=== PATIENT | male | born 1960 | race African-American/Black ===

== ENCOUNTER 2017-10-25 06:41 | Emergency (ER) | payer OTHER ==
[~2017-10-25] VITALS: Ht 188 cm; Wt 158.8 kg
[~2017-10-25 06:41] MED LIST: AMOXICILLIN500 MG ORAL; ASPIR-LOW81 MG PO; BENAZEPRIL HCL20 MG PO; GLUCOPHAGE500 MG PO; HYDROCHLOROTHIA25 MG PO; IBUPROFEN600 MG PO; LEVAQUIN750 MG ORAL; LOTENSIN20 MG PO; MAGIC MOUTH WAS60 ML *; METFORMIN HCL1000 M1 ORAL; METRONIDAZOLE500 MG ORAL; NORCO 5-325 TA1 EACH PO; POLYTRIM OP SOL10 ML BOTH EYES; VIBRAMYCIN100 MG PO; ZESTORETIC 20/251 EA ORAL
[2017-10-25] MEDS ORDERED: Lidocaine 1% 10mg/ml/Epi 0.005mg/ml 30ml vial INJ ONE (07:15)
[2017-10-25] MEDS ORDERED: Bacitracin Oint UD TOPIC ONE (07:15)
--- NOTE | 2017-10-25 07:15 | Emergency Room Report ---
History of Present Illness General Chief Complaint: Skin Rash/Abscess Source: Patient Present Illness HPI Patient presents to the gross the right inner thigh. Mr. Connell for 2-3 months. No most cut out himself he says because of pain he states that his tetanus is up-to-date then had 5 shots 6 months ago. He rates the pain 10/10 at this time, burning not radiating. There is no fevers, chills or redness of the skin. Allergies: Coded Allergies: No Known Allergies (Unverified , 06/03/12) Patient History Past Medical History: see triage record Past Surgical History: polina Social History: Denies: smoking Social History Narrative from home Reviewed Nursing Documentation: PMH: Agreed; PSxH: Agreed Nursing Documentation-PMH Hx Hypertension: Yes Hx Diabetes: Yes Hx Gastrointestinal Problems: No - cholecystectomy Review of Systems Constitutional: Reports: see HPI Respiratory: Denies: shortness of breath Cardiovascular: Denies: chest pain Gastrointestinal: Denies: abdominal pain Skin: Reports: see HPI Neurological: Denies: paresthesia Physical Exam Vital Signs Date Time Temp Pulse Resp B/P (MAP) Pulse Ox O2 Delivery O2 Flow Rate FiO2 10/25/17 06:59 98.3 84 15 135/80 96 Room Air 98.2 Sp02 EP Interpretation: reviewed, normal General Appearance: well appearing, no apparent distress Head: normocephalic, atraumatic Eyes: bilateral eye normal inspection, bilateral eye PERRL ENT: hearing grossly normal, normal voice Neck: full range of motion, supple Respiratory: no respiratory distress, speaking full sentences Gastrointestinal: overweight Musculoskeletal: no calf tenderness Neurologic: alert, normal gait Psychiatric: mood/affect normal Skin: no rash, other - skin tag R inner thigh Procedures Laceration/Wound Repair Laceration/Wound Repair : Consent: Verbal Wound Location: other - Right inner thigh Wound Explored: Skin tag removed and sent to pathology lab for analysis Anesthesia: Lidocaine w/ Epi Wound Debrided: Skin tag removed - minimal bleeding - < 1 ml - controlled Sterile Dressing Applied?: Yes - bacitracin and bandaid Splint Applied?: No Patient Tolerated: Well Complications: None Medical Decision Making Diagnostic Impression: Primary Impression: Skin tag ER Course Patient presents with a painful skin tag in his right inner thigh. Differential could include forms of skin cancer however this is unlikely. Plan is for excision. See procedure note. Tolerated well. Tissue sent to pathology. Patient stable for outpatient observation and treatment. Last Vital Signs Date Time Temp Pulse Resp B/P (MAP) Pulse Ox O2 Delivery O2 Flow Rate FiO2 10/25/17 06:59 98.3 84 15 135/80 96 Room Air 98.2 Scripts Bacitracin (Bacitracin) 28.4 Gm Oint...g. 1 APPLIC TOPIC BID, #20 GM Prov: Aaron Hill M.D. 10/25/17 Aaron Hill M.D. Oct 25, 2017 07:15
[2017-10-25 07:17] VITALS: BP 133/79
[2017-10-25] MEDS ORDERED: BACITRACIN15 GM TOPIC (07:41)
[2017-10-25 07:45] VITALS: BP 133/79
== END 2017-10-25 07:45 | disposition home or self-care (01) ==
LOC: EMR 07:28
DX: L91.8 Other hypertrophic disorders of the skin (principal); E11.9 Type 2 diabetes mellitus without complications; I10 Essential (primary) hypertension; Z90.49 Acquired absence of other specified parts of digestive tract
CPT/HCPCS: 11200; 99284; Z7502

== ENCOUNTER 2019-05-01 14:53 | Emergency (ER) | payer OTHER ==
[~2019-05-01] VITALS: Ht 188 cm; Wt 136.1 kg
[~2019-05-01 14:53] MED LIST changes: +BACITRACIN15 GM TOPIC
[2019-05-01] MEDS ORDERED: LOSARTAN-HCTZ1 EAC1 ORAL ×2 (15:06→15:40)
[2019-05-01 15:10] VITALS: BP 124/69
--- NOTE | 2019-05-01 15:10 | NUR ---
ER Nurse Note: Patient walked in to ER from home due to medication refill. he could not reach his pcp. Patient alert and oriented x4 and amulatory. Skin clean and intact. Calm and cooperative. No acute distress noted at this time.
--- NOTE | 2019-05-01 15:40 | Emergency Room Report ---
History of Present Illness General Chief Complaint: Medication Refill Source: Patient Present Illness HPI 59-year-old male with history of hypertension currently controlled with blood pressure medication here requesting refill on his blood pressure medication. Patient reports the last time he took his blood pressure medication was yesterday. Denies any chest pain, headache, dizziness, blurry vision, nausea vomiting. Patient reports that his primary care physician is out of town and would follow-up with her in 1 month. Patient in no distress and has normal blood pressure. Denies all other associated symptoms. Patient is carrying a bottle of hydrochlorothiazide and losartan. Allergies: Coded Allergies: No Known Allergies (Unverified , 06/03/12) Patient History Past Medical History: see triage record Past Surgical History: none Pertinent Family History: none Immunizations: UTD Reviewed Nursing Documentation: PMH: Agreed; PSxH: Agreed Nursing Documentation-PMH Past Medical History: No History, Except For Hx Hypertension: Yes Hx Diabetes: Yes Hx Gastrointestinal Problems: No - cholecystectomy Review of Systems All Other Systems: negative except mentioned in HPI Physical Exam Vital Signs Date Time Temp Pulse Resp B/P (MAP) Pulse Ox O2 Delivery O2 Flow Rate FiO2 05/01/19 15:02 97.9 64 16 119/66 (83) 96 Room Air Sp02 EP Interpretation: reviewed, normal General Appearance: no apparent distress, alert, GCS 15, non-toxic Head: normocephalic, atraumatic Eyes: bilateral eye normal inspection, bilateral eye PERRL ENT: hearing grossly normal, normal pharynx, no angioedema, normal voice Neck: full range of motion, supple/symm/no masses Respiratory: chest non-tender, lungs clear, normal breath sounds, no wheezing, speaking full sentences Cardiovascular #1: regular rate, rhythm, no edema, no murmur, normal capillary refill Gastrointestinal: normal bowel sounds, non tender, soft, non-distended, no guarding, no rebound Rectal: deferred Genitourinary: normal inspection, no CVA tenderness Musculoskeletal: back normal, gait/station normal, normal range of motion, non- tender, no calf tenderness Neurologic: alert, oriented x3, responsive, motor strength/tone normal, sensory intact, speech normal Psychiatric: judgement/insight normal, memory normal, mood/affect normal, no suicidal/homicidal ideation Skin: no rash Lymphatic: no adenopathy Medical Decision Making PA Attestation All my diagnosis and treatment plans were reviewed ad discussed with my supervising physician Dr. Villegas Diagnostic Impression: Primary Impression: Encounter for medication refill Additional Impression: HTN (hypertension) ER Course 59-year-old male with history of hypertension currently controlled with blood pressure medication here requesting refill on his blood pressure medication. Patient reports the last time he took his blood pressure medication was yesterday. Denies any chest pain, headache, dizziness, blurry vision, nausea vomiting. Patient reports that his primary care physician is out of town and would follow-up with her in 1 month. Patient in no distress and has normal blood pressure. Denies all other associated symptoms. Patient is carrying a bottle of hydrochlorothiazide and losartan. Ddx considered but are not limited to: Hypertension, presents emergency, urgency. Vital signs: are WNL, pt. is afebrile H&PE are most consistent with: Medication refill for controlled hypertension ORDERS: Losartan hydrochlorothiazide ED INTERVENTIONS: None required at this time. DISCHARGE: At this time pt. is stable for d/c to home. Will provide printed patient care instructions, and any necessary prescriptions. Care plan and follow up instructions have been discussed with the patient prior to discharge. Patient to follow-up with primary care provider for further refills. Last Vital Signs Date Time Temp Pulse Resp B/P (MAP) Pulse Ox O2 Delivery O2 Flow Rate FiO2 05/01/19 15:02 97.9 64 16 119/66 (83) 96 Room Air Disposition: HOME, SELF-CARE Condition: Stable Scripts Losartan/Hydrochlorothiazide (LOSARTAN-HCTZ 100-25 MG TAB) 1 Each Tablet 1 TAB ORAL DAILY for 30 Days, #30 TAB Prov: Luis Whitman 05/01/19 Patient Instructions: Hypertension, [id number], Medicine Refill at the Emergency Department Luis Whitman May 01, 2019 15:39
--- NOTE | 2019-05-01 15:50 | NUR ---
ED Nurse Note: Pt cleared by health care Provider for discharge. DC instructions/prescription was given and explained to pt and verbalized understanding of teachings. All medical deviecs such as ID band removed. Pt is AAO x4, ambulatory and left with all personal belongings.
[2019-05-01 15:56] VITALS: BP 124/77
== END 2019-05-01 16:00 | disposition home or self-care (01) ==
LOC: EMR 15:53
DX: I10 Essential (primary) hypertension (principal); Z76.0 Encounter for issue of repeat prescription; E11.9 Type 2 diabetes mellitus without complications; Z90.49 Acquired absence of other specified parts of digestive tract
CPT/HCPCS: 99282

== ENCOUNTER 2019-05-12 04:04 | Emergency (ER) | payer OTHER ==
[~2019-05-12] VITALS: Ht 188 cm; Wt 154.2 kg
[~2019-05-12 04:04] MED LIST changes: +LOSARTAN-HCTZ1 EAC1 ORAL
--- NOTE | 2019-05-12 04:18 | NUR ---
ED Nurse Note: pt walked in to ED C/O dizziness and headache for the last 3 days. pt is alert x4. pt verbalizes he has Hx of DM and HTN
[2019-05-12 04:19] VITALS: BP 130/81
[2019-05-12] MEDS ORDERED: METFORMIN HCL1000 M1 ORAL (04:29)
[2019-05-12] MEDS ORDERED: LOSARTAN-HCTZ1 EAC1 ORAL (04:29)
--- NOTE | 2019-05-12 04:33 | Emergency Room Report ---
History of Present Illness General Chief Complaint: Dizziness Source: Patient Present Illness HPI 59-year-old male history of hypertension, hyperlipidemia, diabetes presents with vague complaints of feeling a little tired, lightheaded, patient states that he just wants his glucose check, denies any chest pain shortness of breath , he denies the room spinning, no nausea no vomiting, no dyspnea on exertion, patient just wants refills on his meds, wants counseling on diabetes, patient presents for evaluation. Allergies: Coded Allergies: No Known Allergies (Unverified , 06/03/12) Patient History Past Medical History: see triage record Reviewed Nursing Documentation: PMH: Agreed; PSxH: Agreed Nursing Documentation-PMH Past Medical History: No History, Except For Hx Hypertension: Yes Hx Diabetes: Yes Hx Gastrointestinal Problems: No - cholecystectomy Review of Systems All Other Systems: negative except mentioned in HPI Physical Exam Vital Signs Date Time Temp Pulse Resp B/P (MAP) Pulse Ox O2 Delivery O2 Flow Rate FiO2 05/12/19 04:11 98.4 68 14 128/70 (89) 95 Room Air 05/12/19 04:19 98 Sp02 EP Interpretation: reviewed, normal General Appearance: well appearing, no apparent distress, alert Head: normocephalic, atraumatic Eyes: bilateral eye PERRL, bilateral eye EOMI ENT: uvula midline, moist mucus membranes Neck: supple, thyroid normal, supple/symm/no masses Respiratory: lungs clear, no respiratory distress, no retraction, no accessory muscle use Cardiovascular #1: normal peripheral pulses, regular rate, rhythm, no edema, no gallop, no murmur Gastrointestinal: non tender, soft, no guarding, no rebound Musculoskeletal: normal inspection Neurologic: alert, oriented x3 Psychiatric: mood/affect normal Skin: no rash, warm/dry Medical Decision Making Diagnostic Impression: Primary Impression: Diabetes mellitus Qualified Codes: E11.9 - Type 2 diabetes mellitus without complications ER Course 59-year-old male presents for a glucose check. Glucose check 139, extensive counseling for diabetes was given, diet modification, refills on meds were given, counseled patient to follow-up with a primary care doctor in order to establish care check A1c disposition home with return precautions Last Vital Signs Date Time Temp Pulse Resp B/P (MAP) Pulse Ox O2 Delivery O2 Flow Rate FiO2 05/12/19 04:19 76 15 Room Air 98 05/12/19 04:19 98.4 130/81 95 Disposition: HOME, SELF-CARE Condition: Stable Referrals: [facility] Magda Rodriguez. [facility] Patient Instructions: Blood Glucose Monitoring, Adult, Diabetes Mellitus and Food, Diabetes and Exercise, Hemoglobin A1c Test Additional Instructions: The patient was provided with discharge instructions, notified to follow-up with a primary care doctor and or specialist in the next 24-48 hours, and to return to the ED if they have worsening of their symptoms. Please note that this report is being documented using Bev[employer] technology. This can lead to erroneous entry secondary to incorrect interpretation by the dictating instrument. Mata Cantu MD May 12, 2019 04:33
--- NOTE | 2019-05-12 04:35 | NUR ---
ER DISCHARGE NOTE: Patient is cleared to be discharged per ERMD, pt is aox4, on room air, with stable vital signs. pt was given dc instructions, pt was able to verbalize understanding, pt id band removed without complications. pt is able to ambulate with steady gait. pt took all belongings.
== END 2019-05-12 04:35 | disposition home or self-care (01) ==
LOC: EMR 04:10
DX: E11.9 Type 2 diabetes mellitus without complications (principal); R42 Dizziness and giddiness; I10 Essential (primary) hypertension; E78.5 Hyperlipidemia, unspecified; Z90.49 Acquired absence of other specified parts of digestive tract
CPT/HCPCS: 82962; Z7502; 99282

== ENCOUNTER 2019-05-18 03:23 | Emergency (ER) | payer OTHER ==
[~2019-05-18] VITALS: Ht 188 cm; Wt 158.8 kg
--- NOTE | 2019-05-18 03:30 | NUR ---
ED Nurse Note: Walk-in patient presents with complaints of upset stomach x 1 week. Patient is concerned about salmonella poisoning. ERMD at bedside.
[2019-05-18 03:34] VITALS: BP 161/96
[2019-05-18] MEDS ORDERED: ZITHROMAX250 MG ORAL (03:36)
[2019-05-18] MEDS ORDERED: LOMOTIL TABLET1 EACH ORAL (03:36)
--- NOTE | 2019-05-18 03:37 | Emergency Room Report ---
History of Present Illness General Chief Complaint: Abdominal Pain Source: Patient Present Illness HPI This is a 59-year-old male who is morbidly obese. He presents with chief complaint abdominal cramping pain with nausea vomiting diarrhea. Is been ongoing for about 8 days. Mostly symptoms of diarrhea. He said everything eat or drink is goes right through. Has bloating and a lot of gas. No fever chills. No trauma. He thought it may be food poisoning's because he ate something 8 days ago no recent antibiotics. No recent travel outside the country. Pain is crampy in nature. 6 out of 10. Worse with eating. Better with rest. Allergies: Coded Allergies: No Known Allergies (Unverified , 06/03/12) Patient History Past Medical History: see triage record, old chart reviewed Past Surgical History: polina Pertinent Family History: none Social History: Denies: smoking Immunizations: other Reviewed Nursing Documentation: PMH: Agreed; PSxH: Agreed Nursing Documentation-PMH Past Medical History: No History, Except For Hx Hypertension: Yes Hx Diabetes: Yes Hx Gastrointestinal Problems: No - cholecystectomy Review of Systems Eye: Denies: eye pain, blurred vision ENT: Denies: ear pain, nose congestion, throat swelling Respiratory: Denies: cough, shortness of breath Cardiovascular: Denies: chest pain, palpitations Gastrointestinal: Reports: abdominal pain, diarrhea, nausea, vomiting Musculoskeletal: Denies: back pain, joint pain Skin: Denies: rash Neurological: Denies: headache, numbness Endocrine: Denies: increased thirst, increased urine Hematologic/Lymphatic: Denies: easy bruising All Other Systems: negative except mentioned in HPI Physical Exam Vital Signs Date Time Temp Pulse Resp B/P (MAP) Pulse Ox O2 Delivery O2 Flow Rate FiO2 05/18/19 03:28 98.8 66 18 161/96 (117) 98 Room Air Vitals with high blood pressure Sp02 EP Interpretation: reviewed, normal General Appearance: well appearing, no apparent distress, alert Head: normocephalic, atraumatic Eyes: bilateral eye PERRL, bilateral eye EOMI ENT: hearing grossly normal, normal pharynx Neck: full range of motion, supple, no meningismus Respiratory: chest non-tender, lungs clear, normal breath sounds Cardiovascular #1: regular rate, rhythm, no murmur Gastrointestinal: non tender, no mass, no organomegaly, no bruit, non-distended , abnormal bowel sounds - hyper active Musculoskeletal: back normal, gait/station normal, normal range of motion Psychiatric: mood/affect normal Medical Decision Making Diagnostic Impression: Primary Impression: Diarrhea Qualified Codes: R19.7 - Diarrhea, unspecified ER Course This been going on for over a week. We will put him on antibiotics. He looks well-hydrated. No evidence of an acute abdomen. No evidence of any obstruction. Will discharge home. Last Vital Signs Date Time Temp Pulse Resp B/P (MAP) Pulse Ox O2 Delivery O2 Flow Rate FiO2 05/18/19 03:28 98.8 66 18 161/96 (117) 98 Room Air Status: unchanged Disposition: HOME, SELF-CARE Condition: Stable Scripts Azithromycin* (ZITHROMAX*) 250 Mg Tablet 250 MG ORAL DAILY, #6 TAB 0 Refills Take two tables once daily for 1 day, then one tablet once daily for 4 days. Prov: Beto Prasad MD 05/18/19 Diphenoxylate Hcl/Atropine (LOMOTIL TABLET) 1 Each Tablet 1 TAB ORAL TID, #15 TAB 0 Refills Prov: Beto Prasad MD 05/18/19 Referrals: [facility]ERR[facility] (PCP) Additional Instructions: Follow-up with your doctor in 3 to 5 days for recheck. Return if worse. Beto Prasad MD May 18, 2019 03:37
--- NOTE | 2019-05-18 03:43 | NUR ---
ED Nurse Note: Patient cleared for discharge by ERMd, verbalized understanding of discharge instructions, ID band removed. Patient is A&Ox4, able to ambulate with steady gait. Patient departed with all belongings.
[2019-05-18 03:44] VITALS: BP 161/96
== END 2019-05-18 03:45 | disposition home or self-care (01) ==
LOC: EMR 03:32
DX: R19.7 Diarrhea, unspecified (principal); I10 Essential (primary) hypertension; E11.9 Type 2 diabetes mellitus without complications
CPT/HCPCS: 99282

== ENCOUNTER 2019-06-30 00:27 | Emergency (ER) | payer OTHER ==
[~2019-06-30] VITALS: Ht 188 cm; Wt 156.5 kg
[~2019-06-30 00:27] MED LIST changes: +LOMOTIL TABLET1 EACH ORAL; +ZITHROMAX250 MG ORAL
[2019-06-30 01:30] VITALS: BP 150/84
--- NOTE | 2019-06-30 01:30 | NUR ---
ED Nurse Note: ppt walked in to ED for C/O pain while urinating since 2 weeks ago. no penile discharge present. pt is alert x4.
--- NOTE | 2019-06-30 01:39 | NUR ---
ED Nurse Note: urine sample sent down to lab
[2019-06-30 01:42] LABS: APPEARANCE,URINE CLEAR; BILIRUBIN, URINE NEGATIVE (NEGATIVE); COLOR,URINE PALE YELLOW; GLUCOSE, URINE (UA) NEGATIVE (NEGATIVE); KETONES,URINE NEGATIVE (NEGATIVE); LEUKOCYTE ESTERASE ,URINE NEGATIVE (NEGATIVE); NITRITE,URINE NEGATIVE (NEGATIVE); PH,URINE 6 (4.5-8.0); PROTEIN,URINE 1+ (NEGATIVE); UROBILINOGEN,URINE NORMAL MG/DL (0.0-1.0)
--- NOTE | 2019-06-30 01:44 | Emergency Room Report ---
History of Present Illness General Chief Complaint: Male Urogenital Problems Source: Patient Present Illness HPI 59-year-old male who presents with burning on urination. Symptoms started 2 weeks ago. He is concern for sexually transmitted infection, as he has had recent new sexual partners who had similar symptoms. He has not been tested, nor has his partner. Patient denies any hematuria, testicular pain, lesions, rash, abdominal pain. Allergies: Coded Allergies: No Known Allergies (Unverified , 06/03/12) Nursing Documentation-[facility] Past Medical History: No History, Except For Hx Hypertension: Yes Hx Diabetes: Yes Hx Gastrointestinal Problems: No - cholecystectomy Review of Systems Constitutional: Denies: chills, fever Respiratory: Denies: cough, shortness of breath Cardiovascular: Denies: chest pain, palpitations Gastrointestinal: Denies: diarrhea, vomiting Genitourinary: Reports: dysuria; Denies: hematuria, pain Musculoskeletal: Denies: joint swelling Skin: Denies: rash, lesions Neurological: Denies: headache, dizziness Physical Exam Vital Signs Date Time Temp Pulse Resp B/P (MAP) Pulse Ox O2 Delivery O2 Flow Rate FiO2 06/30/19 00:33 98.4 76 18 154/87 (109) 99 Room Air Sp02 EP Interpretation: reviewed General Appearance: well appearing, no apparent distress, non-toxic Head: normocephalic, atraumatic Eyes: bilateral eye normal inspection ENT: hearing grossly normal, EOM grossly intact, moist mucus membranes Neck: supple Respiratory: lungs clear, normal breath sounds, no respiratory distress, speaking full sentences Cardiovascular #1: regular rate, rhythm, normal capillary refill Cardiovascular #2: 2+ radial (R), 2+ radial (L) Gastrointestinal: soft, non-distended Rectal: deferred Genitourinary: normal inspection, no CVA tenderness, penis normal, scrotum normal Musculoskeletal: moves extm spontaneously, no lower extremity edema Neurologic: grossly normal Psychiatric: mood/affect normal Skin: warm/dry, normal turgor Medical Decision Making ER Course 59-year-old male presents with dysuria concern for sexually transmitted infection. Normal genital exam, no lesions noted, testicular exam within normal limits We will treat for sexually transmitted infections, recommended patient to be tested at neighboring clinic and to have partner tested. Patient is stable for outpatient follow-up and discharge, at this time no signs of systemic infection , testicular torsion or acute abdomen.. Laboratory Tests Test 06/30/19 00:50 Urine Color Pale yellow Urine Appearance Clear Urine pH 6 (4.5-8.0) Urine Specific [place] 1.015 (1.005-1.035) Urine Protein 1+ (NEGATIVE) H Urine Glucose (UA) Negative (NEGATIVE) Urine Ketones Negative (NEGATIVE) Urine Blood 1+ (NEGATIVE) H Urine Nitrite Negative (NEGATIVE) Urine Bilirubin Negative (NEGATIVE) Urine Urobilinogen Normal MG/DL (0.0-1.0) Urine Leukocyte Esterase Negative (NEGATIVE) Urine RBC 0-2 /HPF (0 - 0) H Urine WBC 0 /HPF (0 - 0) Urine Squamous Epithelial Cells None /LPF (NONE/OCC) Urine Bacteria None /HPF (NONE) Lab Results Impression Urinalysis within normal limits Last Vital Signs Date Time Temp Pulse Resp B/P (MAP) Pulse Ox O2 Delivery O2 Flow Rate FiO2 06/30/19 01:30 98.2 87 18 150/84 98 Room Air Disposition: HOME, SELF-CARE Condition: Stable Referrals: [facility] Magda Wiseman [facility]. [facility] Patient Instructions: Sexually Transmitted Disease, Urethritis, Adult Additional Instructions: Go to any of the listed clinics for a STD check. Do not have sexual intercourse until both partners are treated. Return to emergency room if you have any new symptoms. Gallo Richards M.D. Jun 30, 2019 01:44
[2019-06-30] MEDS ORDERED: Lidocaine 1% MPF 10mg/ml 5ml INJ ONE (01:45)
[2019-06-30] MEDS ORDERED: Azithromycin 250mg tab ORAL ONE (01:45)
[2019-06-30 02:42] VITALS: BP 146/84
--- NOTE | 2019-06-30 02:42 | NUR ---
ER DISCHARGE NOTE: Patient is cleared to be discharged per ERMD, pt is aox4, on room air, with stable vital signs. pt was given dc instructions, pt was able to verbalize understanding, pt id iv site removed without complications. pt is able to ambulate with steady gait. pt took all belongings.
== END 2019-06-30 02:40 | disposition home or self-care (01) ==
LOC: EMR 01:49
DX: R30.0 Dysuria (principal); I10 Essential (primary) hypertension; Z90.49 Acquired absence of other specified parts of digestive tract; E11.9 Type 2 diabetes mellitus without complications
CPT/HCPCS: 81003; 96372; 96374; J0696; Q0144; Z7502; 99284

== ENCOUNTER 2020-01-29 20:43 | Emergency (ER) | payer OTHER ==
[~2020-01-29] VITALS: Ht 188 cm; Wt 154.2 kg
[2020-01-29 20:58] VITALS: BP 140/78
[2020-01-29 21:10] LABS: APPEARANCE,URINE CLEAR; BILIRUBIN, URINE NEGATIVE (NEGATIVE); COLOR,URINE PALE YELLOW; GLUCOSE, URINE (UA) NEGATIVE (NEGATIVE); KETONES,URINE NEGATIVE (NEGATIVE); LEUKOCYTE ESTERASE ,URINE 1+ (NEGATIVE); NITRITE,URINE NEGATIVE (NEGATIVE); PH,URINE 5 (4.5-8.0); PROTEIN,URINE 2+ (NEGATIVE); UROBILINOGEN,URINE NORMAL MG/DL (0.0-1.0)
[2020-01-29] MEDS ORDERED: Azithromycin 250mg tab ORAL ONE (21:15)
[2020-01-29] MEDS ORDERED: Lidocaine 1% MPF 10mg/ml 5ml INJ ONE (21:15)
--- NOTE | 2020-01-29 21:29 | Emergency Room Report ---
History of Present Illness General Chief Complaint: Male Urogenital Problems Present Illness HPI 59-year-old male with history of type 2 diabetes and hypertension controlled with medication here complaining of 2 weeks of feeling heavy in the penile and scrotal area however denies any scrotal pain or swelling. Reports that he also has some dysuria and reports that started after being sexually active with multiple partners over 2 weeks ago. Denies any penile discharge. Denies any ulceration or pruritus in the area. Denies fever and chills, suprapubic pain, nausea vomiting. Has not taken medication for symptom relief. Allergies: Coded Allergies: No Known Allergies (Unverified , 06/03/12) COVID-19 Screening Contact w/high risk pt: No Experienced COVID-19 symptoms?: No COVID-19 Testing performed SHIP SCRAPER: No Patient History Past Medical History: see triage record Past Surgical History: none Pertinent Family History: none Immunizations: UTD Reviewed Nursing Documentation: PMH: Agreed; PSxH: Agreed Nursing Documentation-PMH Hx Hypertension: Yes Hx Diabetes: Yes Hx Gastrointestinal Problems: No - cholecystectomy Review of Systems All Other Systems: negative except mentioned in HPI Physical Exam Vital Signs Date Time Temp Pulse Resp B/P (MAP) Pulse Ox O2 Delivery O2 Flow Rate FiO2 01/29/20 20:48 98.2 78 16 140/78 (98) 99 Room Air Sp02 EP Interpretation: reviewed, normal General Appearance: no apparent distress, alert, GCS 15, non-toxic Head: normocephalic, atraumatic Eyes: bilateral eye normal inspection, bilateral eye PERRL ENT: hearing grossly normal, normal pharynx, no angioedema, normal voice Neck: full range of motion, supple/symm/no masses Respiratory: chest non-tender, lungs clear, normal breath sounds, no rhonchi, no respiratory distress, no retraction, speaking full sentences Cardiovascular #1: regular rate, rhythm, no edema Gastrointestinal: normal bowel sounds, non tender, soft, non-distended, no guarding, no rebound Rectal: deferred Genitourinary: no CVA tenderness Musculoskeletal: back normal Neurologic: alert, motor strength/tone normal, oriented x3, sensory intact, responsive, speech normal Psychiatric: judgement/insight normal, memory normal, mood/affect normal, no suicidal/homicidal ideation Skin: no rash Lymphatic: no adenopathy Medical Decision Making PA Attestation All diagnoses and treatment plans were reviewed and discussed with my supervising physician Dr. Waller Diagnostic Impression: Primary Impression: STD exposure Additional Impression: UTI (urinary tract infection) ER Course 59-year-old male with history of type 2 diabetes and hypertension controlled with medication here complaining of 2 weeks of feeling heavy in the penile and scrotal area however denies any scrotal pain or swelling. Reports that he also has some dysuria and reports that started after being sexually active with multiple partners over 2 weeks ago. Denies any penile discharge. Denies any ulceration or pruritus in the area. Denies fever and chills, suprapubic pain, nausea vomiting. Has not taken medication for symptom relief. Ddx considered but are not limited to: UTI, chlamydia, Gonorrhea, syphilis, HIV , herpes 1 or 2 Vital signs: are WNL, pt. is afebrile H&PE are most consistent with : STD exposure, UTI ORDERS: UA, urince cx, keflex ED INTERVENTIONS: Rocephin IM, azithromycin PO DISCHARGE: At this time pt. is stable for d/c to home. Will provide printed patient care instructions, and any necessary prescriptions. Care plan and follow up instructions have been discussed with the patient prior to discharge. Patient take medication as directed, follow-up primary care provider, if worsening symptom and continues to have pressure and heaviness in the scrotal area follow-up with urologist. At this time this is not indication for scrotal ultrasound there is no pain and there was no trauma. Last Vital Signs Date Time Temp Pulse Resp B/P (MAP) Pulse Ox O2 Delivery O2 Flow Rate FiO2 01/29/20 20:58 98.2 78 16 140/78 99 Room Air Disposition: HOME, SELF-CARE Condition: Stable Referrals: NON PHYSICIAN (PCP) Patient Instructions: Chlamydia, Male, Gonorrhea, Urinary Tract Infection Additional Instructions: Patient take medication as directed, follow-up primary care provider, if worsening symptom and continues to have pressure and heaviness in the scrotal area follow-up with urologist If worsening symptoms return to the emergency room Luis Whitman Jan 29, 2020 21:29
[2020-01-29] MEDS ORDERED: CEPHALEXIN500 MG ORAL (21:30)
[2020-01-29 21:36] VITALS: BP 137/82
== END 2020-01-29 21:36 | disposition home or self-care (01) ==
LOC: EMR 21:16
DX: N39.0 Urinary tract infection, site not specified (principal); Z20.2 Contact with and (suspected) exposure to infections with a predominantly sexual mode of transmission; E11.9 Type 2 diabetes mellitus without complications; I10 Essential (primary) hypertension; Z90.49 Acquired absence of other specified parts of digestive tract
CPT/HCPCS: 81003; 96372; 96374; J0696; Q0144; Z7502; 99284

== ENCOUNTER 2020-02-10 21:21 | Emergency (ER) | payer OTHER ==
[~2020-02-10] VITALS: Ht 188 cm; Wt 149.7 kg
[~2020-02-10 21:21] MED LIST changes: -DOXYCYCLINE MO100 MG ORAL; -IBUPROFEN600 M1 ORAL; -LEVOFLOXACIN500 MG ORAL
[2020-02-10 21:33] VITALS: BP 149/95
--- NOTE | 2020-02-10 21:33 | NUR ---
ED Nurse Note: pt ambulated into ED from home CO pain in lower left groin x 2 weeks. Pt states that he was recently seen at [facility] and STI tx and states that he completed entire medication regimen prescribed with no resolution in symptoms. Pt denies trouble urinating, denies discharge, denies fever/chills/n/v. Pt aao x 4, ambulates with steady gait. Awaiting ERMD at bedside.
--- NOTE | 2020-02-10 21:56 | NUR ---
ED Nurse Note: US at bedside
[2020-02-10 21:57] LABS: APPEARANCE,URINE CLEAR; BILIRUBIN, URINE NEGATIVE (NEGATIVE); GLUCOSE, URINE (UA) NEGATIVE (NEGATIVE); KETONES,URINE 1+ (NEGATIVE); LEUKOCYTE ESTERASE ,URINE 2+ (NEGATIVE); NITRITE,URINE NEGATIVE (NEGATIVE); PH,URINE 5 (4.5-8.0); PROTEIN,URINE 2+ (NEGATIVE); UROBILINOGEN,URINE 1 MG/DL (0.0-1.0)
[2020-02-10 22:00] LABS: COLOR,URINE YELLOW
--- NOTE | 2020-02-10 22:08 | NUR ---
ED Nurse Note: ERMD at bedside for initial assessment
--- NOTE | 2020-02-10 22:16 | Emergency Room Report ---
History of Present Illness General Chief Complaint: Male Urogenital Problems Source: Patient Present Illness HPI This is a 59-year-old male with a history of diabetes. He presents with chief complaint of left groin pain and left testicular pain. Onset for last 3 weeks now. He was here before and was given azithromycin. He said is not helping. He denies any fever or chills. He denies any discharge. Pain is in the groin and radiating to the testicle. He said he felt fatigue in that area. Pain is 8 out of 10. Worse with movement. No discharge. No dysuria or frequency. No testicular swelling. Allergies: Coded Allergies: No Known Allergies (Unverified , 06/03/12) COVID-19 Screening Contact w/high risk pt: No Experienced COVID-19 symptoms?: No COVID-19 Testing performed DAMAGE PREVENTION COORDINATOR: No Patient History Past Medical History: see triage record, old chart reviewed, DM Past Surgical History: none Pertinent Family History: none Social History: Denies: smoking Immunizations: other Reviewed Nursing Documentation: PMH: Agreed; PSxH: Agreed Nursing Documentation-PMH Hx Hypertension: Yes Hx Diabetes: Yes Hx Gastrointestinal Problems: No - cholecystectomy Review of Systems Eye: Denies: eye pain, blurred vision ENT: Denies: ear pain, nose congestion, throat swelling Respiratory: Denies: cough, shortness of breath Cardiovascular: Denies: chest pain, palpitations Gastrointestinal: Denies: abdominal pain, diarrhea, nausea, vomiting Musculoskeletal: Denies: back pain, joint pain Skin: Denies: rash Neurological: Denies: headache, numbness Endocrine: Denies: increased thirst, increased urine Hematologic/Lymphatic: Denies: easy bruising All Other Systems: negative except mentioned in HPI Physical Exam Vital Signs Date Time Temp Pulse Resp B/P (MAP) Pulse Ox O2 Delivery O2 Flow Rate FiO2 02/10/20 21:23 98.1 83 18 149/95 (113) 97 Room Air Vitals with high blood pressure Sp02 EP Interpretation: reviewed, normal General Appearance: well appearing, no apparent distress, alert Head: normocephalic, atraumatic Eyes: bilateral eye PERRL, bilateral eye EOMI ENT: hearing grossly normal, normal pharynx Neck: full range of motion, supple, no meningismus Respiratory: chest non-tender, lungs clear, normal breath sounds Cardiovascular #1: regular rate, rhythm, no murmur Gastrointestinal: normal bowel sounds, non tender, no mass, no organomegaly, no bruit, non-distended Genitourinary: other - No penile abnormality. Mild tenderness in the left groin. No mass palpated. Mild testicular tenderness. Musculoskeletal: back normal, normal range of motion, gait/station normal Psychiatric: mood/affect normal Medical Decision Making Diagnostic Impression: Primary Impression: UTI (urinary tract infection) Qualified Codes: N30.00 - Acute cystitis without hematuria Additional Impression: Left testicular pain ER Course Patient presents with left groin and testicular pain. Ultrasound negative for torsion. No evidence of any mass. Urine still show urinary tract infection. Dose of Rocephin given here. CT/MRI/US Diagnostic Results CT/MRI/US Diagnostic Results : Imaging Test Ordered: testicular ultrasound Impression Negative per service observer chief Last Vital Signs Date Time Temp Pulse Resp B/P (MAP) Pulse Ox O2 Delivery O2 Flow Rate FiO2 02/10/20 21:33 98.1 83 18 149/95 97 Room Air Status: improved Disposition: HOME, SELF-CARE Condition: Stable Scripts Ibuprofen* (MOTRIN*) 600 Mg Tablet 600 MG ORAL Q6H PRN for For Pain, #30 TAB 0 Refills Prov: Beto Prasad MD 02/10/20 Doxycycline Monohydrate* (DOXYCYCLINE MONOHYDRATE*) 100 Mg Capsule 100 MG ORAL Q12H, #14 CAP 0 Refills Prov: Beto Prasad MD 02/10/20 Levofloxacin (LEVOFLOXACIN*) 500 Mg Tablet 500 MG ORAL DAILY, #7 TAB Prov: Beto Prasad MD 02/10/20 Referrals: NON PHYSICIAN (PCP) Patient Instructions: Urinary Tract Infection Additional Instructions: Follow-up with your doctor in 1 to 2 weeks for recheck on your urine. Return if symptoms worsen. Beto Prasad MD Feb 10, 2020 22:16
[2020-02-10] MEDS ORDERED: LEVOFLOXACIN500 MG ORAL (22:20)
[2020-02-10] MEDS ORDERED: IBUPROFEN600 M1 ORAL (22:20)
[2020-02-10] MEDS ORDERED: DOXYCYCLINE MO100 MG ORAL (22:20)
[2020-02-10] MEDS ORDERED: cefTRIAXone 1 GM in NS 55 ML IVPB ONE (22:30)
--- NOTE | 2020-02-10 22:31 | Diagnostic Imaging Report ---
EXAM: US Scrotum CLINICAL HISTORY: PAIN TECHNIQUE: Real-time ultrasound of the scrotum with color Doppler and image documentation. COMPARISON: No relevant prior studies available. FINDINGS: Negative for intra-testicular mass or torsion. Bilateral microlithiasis. No inflammatory changes identified. Negative for evidence of hydrocele.
--- NOTE | 2020-02-10 22:32 | NUR ---
ED Nurse Note: Iv line initiated, all medications administered, pt tolerated well no ss of distress noted. will continue to monitor.
--- NOTE | 2020-02-10 22:34 | NUR ---
ED Nurse Note: ERMD at bedside
[2020-02-10 22:53] VITALS: BP 139/82
--- NOTE | 2020-02-10 22:53 | NUR ---
ER DISCHARGE NOTE: Patient is cleared to be discharged home per ERMD, pt is aox4, 98% on room air, with stable vital signs. pt was given dc and prescription instructions, pt was able to verbalize understanding, pt id band and iv site removed without complications. pt is able to ambulate with steady gait. pt took all belongings. pt verbalized understanding of discharge instructions.
== END 2020-02-10 22:53 | disposition home or self-care (01) ==
LOC: EMR 22:00
DX: N30.00 Acute cystitis without hematuria (principal); N50.812 Left testicular pain; Z90.49 Acquired absence of other specified parts of digestive tract; E11.9 Type 2 diabetes mellitus without complications; I10 Essential (primary) hypertension
CPT/HCPCS: 76870; 80307; 81003; 87086; 96365; J0696; Z7502; 99284

== ENCOUNTER → 2020-02-10 | Emergency (ER) | payer OTHER ==
[~2020-02-10] MED LIST changes: +CEPHALEXIN500 MG ORAL; +DOXYCYCLINE MO100 MG ORAL; +IBUPROFEN600 M1 ORAL; +LEVOFLOXACIN500 MG ORAL
--- NOTE | 2020-02-10 13:50 | NUR ---
pt called not in waiting room
--- NOTE | 2020-02-10 14:00 | NUR ---
ED Nurse Note: recalled pt to be triaged. pt not present in waiting room
--- NOTE | 2020-02-10 14:10 | NUR ---
pt not in waiting room
--- NOTE | 2020-02-10 16:15 | Emergency Room Report ---
History of Present Illness General Chief Complaint: To Be Triaged Present Illness HPI PATIENT LEFT WITHOUT BEING SEEN. I DID NOT EVER COME INTO CONTACT WITH PATIENT. Allergies: Coded Allergies: No Known Allergies (Unverified , 06/03/12) COVID-19 Screening Contact w/high risk pt: No Experienced COVID-19 symptoms?: No Nursing Documentation-PMH Hx Hypertension: Yes Hx Diabetes: Yes Hx Gastrointestinal Problems: No - cholecystectomy Medical Decision Making Diagnostic Impression: Primary Impression: lwbs Disposition: LEFT W/OUT BEING SEEN Admit Decision Time: 14:00 Condition: Unknown Referrals: NON PHYSICIAN (PCP) Traci Tay D.O. Feb 10, 2020 16:15
== END | disposition left against medical advice (07) ==
LOC: EMR 14:34
DX: Z53.21 Procedure and treatment not carried out due to patient leaving prior to being seen by health care provider (principal); E11.9 Type 2 diabetes mellitus without complications; I10 Essential (primary) hypertension; Z90.49 Acquired absence of other specified parts of digestive tract

== ENCOUNTER 2020-07-03 15:59 | Emergency (ER) | payer OTHER ==
[~2020-07-03] VITALS: Ht 188 cm; Wt 154.2 kg
[~2020-07-03 15:59] MED LIST changes: +DOXYCYCLINE MO100 MG ORAL; +IBUPROFEN600 M1 ORAL; +LEVOFLOXACIN500 MG ORAL; +NORVASC2.5 MG ORAL; +TYLENOL325 MG ORAL
[2020-07-03 16:35] LABS: APPEARANCE,URINE CLOUDY; BILIRUBIN, URINE NEGATIVE (NEGATIVE); COLOR,URINE BROWN; GLUCOSE, URINE (UA) NEGATIVE (NEGATIVE); KETONES,URINE 1+ (NEGATIVE); LEUKOCYTE ESTERASE ,URINE 1+ (NEGATIVE); NITRITE,URINE NEGATIVE (NEGATIVE); PH,URINE 5 (4.5-8.0); PROTEIN,URINE 3+ (NEGATIVE); UROBILINOGEN,URINE 1 MG/DL (0.0-1.0)
--- NOTE | 2020-07-03 16:47 | NUR ---
ED Nurse Note: Patient presents to ER due to hematuria x 1 week with bilateral flank pain. Reports no fever, chills or N/V. Patient has hx of kidney stone and received surgery 2 years ago. Reports no urinary problem. Patient awake, alert, oriented x 4. Regular, unlabored breathing noted. No facial grimacing or guarding noted. Bed in lowest position.
--- NOTE | 2020-07-03 17:13 | Emergency Room Report ---
History of Present Illness General Chief Complaint: Male Urogenital Problems Present Illness HPI 60-year-old male presents to the emergency department complaining of cloudy dark-colored urine with urinary frequency and blood in the urine progressive x1 week. Patient reports symptoms onset after having to hold his urine for several hours on a few occasions. Patient reports some low back aches. He denies fevers or chills. He denies lower abdominal pain. He denies penile discharge or suspicion of STI. He denies dysuria or urgency. Patient reports history of "prediabetes "and states that he takes at 1000 mg Metformin daily and has a history of high blood pressure. He denies body aches fatigue or nausea. Allergies: Coded Allergies: No Known Allergies (Unverified , 06/03/12) COVID-19 Screening Contact w/high risk pt: No Experienced COVID-19 symptoms?: No COVID-19 Testing performed MUSHROOM GROWER: No Patient History Past Medical History: see triage record Past Surgical History: none Pertinent Family History: none Reviewed Nursing Documentation: PMH: Agreed; PSxH: Agreed Nursing Documentation-PMH Hx Hypertension: Yes Hx Diabetes: Yes Hx Gastrointestinal Problems: No - cholecystectomy Review of Systems All Other Systems: negative except mentioned in HPI Physical Exam Vital Signs Date Time Temp Pulse Resp B/P (MAP) Pulse Ox O2 Delivery O2 Flow Rate FiO2 07/03/20 16:09 98.6 60 19 138/79 (98) 95 Room Air Sp02 EP Interpretation: reviewed, normal General Appearance: no apparent distress, alert, GCS 15, non-toxic Head: normocephalic, atraumatic Eyes: bilateral eye normal inspection, bilateral eye PERRL ENT: hearing grossly normal, normal voice Neck: full range of motion Respiratory: lungs clear, normal breath sounds, speaking full sentences Cardiovascular #1: regular rate, rhythm Gastrointestinal: non tender, soft Rectal: deferred Genitourinary: normal inspection, no CVA tenderness Musculoskeletal: back normal, normal range of motion, gait/station normal, non- tender Neurologic: alert, motor strength/tone normal, oriented x3, sensory intact, responsive, speech normal Psychiatric: judgement/insight normal Skin: no rash, normal color Medical Decision Making PA Attestation Dr. Otto is my supervising Physician whom patient management has been discussed with. Diagnostic Impression: Primary Impression: UTI (urinary tract infection) Qualified Codes: N30.01 - Acute cystitis with hematuria ER Course 60-year-old male presents to the emergency department complaining of cloudy dark-colored urine with urinary frequency and blood in the urine progressive x1 week. Patient reports symptoms onset after having to hold his urine for several hours on a few occasions. Patient reports some low back aches. He denies fevers or chills. He denies lower abdominal pain. He denies penile discharge or suspicion of STI. He denies dysuria or urgency. Patient reports history of "prediabetes "and states that he takes at 1000 mg Metformin daily and has a history of high blood pressure. He denies body aches fatigue or nausea. Ddx considered but are not limited to UTi , Pyelo, STI, Stone, Cystitis, rhabdo, glomerulonephritis, or renal dysfunction just to name a few Vital signs: are WNL, pt. is afebrile H&PE are most consistent with UTI --patient is nontoxic in appearance in no acute distress afebrile no CVA tenderness on exam. Moist mucous membranes no suspicion of rhabdo. And appears well-hydrated. ORDERS: - UA labs are attached --moderate bacteria without squamous cells. There is increase in inflammatory markers, 5+ blood as well as some protein in the urine. ED INTERVENTIONS: None required at this time. DISCHARGE: At this time pt. is stable for d/c to home. Will provide printed pat ient care instructions, and any necessary prescriptions. Care plan and follow up instructions have been discussed with the patient prior to discharge. Labs Test 07/03/20 16:15 Urine Color Brown Urine Appearance Cloudy Urine pH 5 (4.5-8.0) Urine Specific [place] 1.020 (1.005-1.035) Urine Protein 3+ (NEGATIVE) Urine Glucose (UA) Negative (NEGATIVE) Urine Ketones 1+ (NEGATIVE) Urine Blood 5+ (NEGATIVE) Urine Nitrite Negative (NEGATIVE) Urine Bilirubin Negative (NEGATIVE) Urine Urobilinogen 1 MG/DL (0.0-1.0) Urine Leukocyte Esterase 1+ (NEGATIVE) Urine RBC Tntc /HPF (0 - 0) Urine WBC 5-10 /HPF (0 - 0) Urine Squamous Epithelial Cells None /LPF (NONE/OCC) Urine Bacteria Moderate /HPF (NONE) Last Vital Signs Date Time Temp Pulse Resp B/P (MAP) Pulse Ox O2 Delivery O2 Flow Rate FiO2 12/22/20 16:09 98.6 60 19 138/79 (98) 95 Room Air Status: improved Disposition: HOME, SELF-CARE Condition: Stable Scripts Phenazopyridine Hcl* (PYRIDIUM*) 200 Mg Tablet 200 MG ORAL THREE TIMES A DAY for 2 Days, #6 TAB 0 Refills Prov: Daija Tim 07/03/20 Cephalexin* (KEFLEX*) 500 Mg Capsule 500 MG ORAL EVERY 12 HOURS for 7 Days, #14 CAP 0 Refills Prov: Daija Tim 07/03/20 Patient Instructions: Urinary Tract Infection Additional Instructions: Take medications as directed. Follow up with a Primary Care Provider in 3-5 days, even if your symptoms have resolved. Return sooner to ED if new symptoms occur, or current symptoms become worse. - Please note that this Emergency Department Report was dictated using [employer] assembler technology software, occasionally this can lead to erroneous entry secondary to interpretation by the dictation equipment. Daija Tim Jul 03, 2020 17:13
[2020-07-03] MEDS ORDERED: CEPHALEXIN500 MG ORAL (17:14)
[2020-07-03] MEDS ORDERED: PHENAZOPYRIDIN200 MG ORAL (17:14)
[2020-07-03 17:19] VITALS: BP 144/86
--- NOTE | 2020-07-03 17:21 | NUR ---
Note josseone in EDM - 07/03/20 at 1722 by DANILO ED Nurse Note: Patient is cleared to be discharged per ERMD. D/C instruction and prescriptions given to patient. All questions were answered. Patient verbalized understanding of it. ID band removed. Patient agreed to f/u with PCP/dentist. Patient ambulated out with steady gait with all her belongings.
--- NOTE | 2020-07-03 17:22 | NUR ---
ED Nurse Note: Patient is cleared to be discharged per ERMD. D/C instruction and prescriptions given to patient. All questions were answered. Patient verbalized understanding of it. ID band removed. Patient agreed to make appt with PCP. Patient ambulated out with steady gait with all his belongings.
== END 2020-07-03 17:20 | disposition home or self-care (01) ==
LOC: EMR 17:15
DX: N30.01 Acute cystitis with hematuria (principal); E11.9 Type 2 diabetes mellitus without complications; I10 Essential (primary) hypertension; Z79.84 Long term (current) use of oral hypoglycemic drugs
CPT/HCPCS: 81003; 87086; Z7502; 99283

== ENCOUNTER 2020-09-04 04:15 | Emergency (ER) | payer OTHER ==
[~2020-09-04 04:15] MED LIST changes: +PHENAZOPYRIDIN200 MG ORAL
--- NOTE | 2020-09-06 18:35 | Emergency Room Report ---
History of Present Illness General Chief Complaint: To Be Triaged Present Illness Allergies: Coded Allergies: No Known Allergies (Unverified , 06/03/12) COVID-19 Screening Contact w/high risk pt: No Experienced COVID-19 symptoms?: No Nursing Documentation-PMH Hx Hypertension: Yes Hx Diabetes: Yes Hx Gastrointestinal Problems: No - cholecystectomy Medical Decision Making Diagnostic Impression: Primary Impression: ELOPED ER Course Left without being seen Status: unchanged Disposition: LEFT W/OUT BEING SEEN Condition: Unknown Referrals: NON PHYSICIAN (PCP) Gabriel Mckeon MD Sep 06, 2020 18:35
== END 2020-09-04 04:30 | disposition left against medical advice (07) ==
LOC: EMR 04:15
DX: Z53.21 Procedure and treatment not carried out due to patient leaving prior to being seen by health care provider (principal); E11.9 Type 2 diabetes mellitus without complications; I10 Essential (primary) hypertension; Z90.49 Acquired absence of other specified parts of digestive tract